=== PATIENT | female | born 1990 | race Caucasian/White ===

== ENCOUNTER 2016-07-22 23:25 | Emergency (ER) | payer MEDICARE | END 2016-07-23 05:18 | disposition home or self-care (01) | LOC: ER1 23:25 | DX: J02.9 Acute pharyngitis, unspecified (principal); J06.9 Acute upper respiratory infection, unspecified; F17.210 Nicotine dependence, cigarettes, uncomplicated; Z91.030 Bee allergy status; Z91.09 Other allergy status, other than to drugs and biological substances | CPT/HCPCS: 36415; 71020; 84703; 87081; 87880; 93005; 99284 ==